=== PATIENT | male | born 1995 | race African-American/Black ===

== ENCOUNTER 2025-11-05 20:18 | Emergency (ER) | payer OTHER ==
[~2025-11-05] VITALS: Ht 170.2 cm; Wt 83.0 kg
[2025-11-05 23:05] VITALS: BP 126/64; TEMP 98.3; O2SAT 98
== END 2025-11-05 23:06 | disposition home or self-care (01) ==
LOC: M ED 21:50
DX: S16.1XXA Strain of muscle, fascia and tendon at neck level, initial encounter (principal); Y92.9 Unspecified place or not applicable; Y93.23 Activity, snow (alpine) (downhill) skiing, snowboarding, sledding, tobogganing and snow tubing; Y99.9 Unspecified external cause status; W01.0XXA Fall on same level from slipping, tripping and stumbling without subsequent striking against object, initial encounter